=== PATIENT | female | born 1990 | race Caucasian/White ===

== ENCOUNTER 2024-04-29 11:07 | Emergency (ER) | payer OTHER, SELFPAY ==
[2024-04-29 11:22] VITALS: BP 157/98; PULSE 105; RESP 20; TEMP 36.8; O2SAT 100
--- NOTE | 2024-04-29 12:18 | ED.GENADULT ---
HPI - General Adult General Chief complaint: Skin/Abscess/Foreign Body Stated complaint: Poison yeni / sumac/ oak Source: patient Mode of arrival: ambulatory Limitations: no limitations History of Present Illness HPI narrative: Patient presents for evaluation of a pruritic rash to her face, chest, abdomen, and extremities x4. Symptoms started after being exposed to poison yeni. She was given a prescription for low-dose prednisone on 04/25/2024. She was also given a prescription for triamcinolone. Her symptoms have not improved. She denies any difficulty breathing or swallowing. She is diabetic on metformin. Related Data Home Medications Medication Instructions Recorded Confirmed Zyrtec 04/29/24 levothyroxine 04/29/24 lisinopril 04/29/24 metformin 04/29/24 pravastatin 04/29/24 prednisone 10 mg tablet mg 04/29/24 triamcinolone acetonide 0.1 % applic topical 04/29/24 topical cream venlafaxine 150 mg mg PO 04/29/24 capsule,extended release 24 hr Allergies Allergy/AdvReac Type Severity Reaction Status Date / Time vancomycin Allergy Unknown Verified 04/29/24 11:24 Review of Systems Review of Systems: CONSTITUTIONAL: Denies fever, chills, or sweats. EYES: Denies visual changes, redness, or discharge. ENT: Denies rhinorrhea, congestion, sore throat, or otalgia. CARDIOVASCULAR: Denies chest pain, palpitations, or edema. RESPIRATORY: Denies cough or dyspnea. GASTROINTESTINAL: Denies abdominal pain, nausea, vomiting, or diarrhea. GENITOURINARY: Denies dysuria or hematuria. SKIN: Reports pruritic rash and erythema to face, chest, abdomen, extremities x 4 MUSCULOSKELETAL: Denies back pain, joint pain, or myalgia. NEUROLOGIC: Denies headache, numbness, dizziness, or weakness. PSYCHIATRIC: Denies anxiety or depression. [facility] Past Medical History Medical History Diabetes Hyperlipidemia Hypertension Surgical History Surgical History History of ankle surgery Family History Family History Mother Family history non-contributory Social History Social History Smoking status: Current some day smoker Tobacco type: e-cigarettes/vaping Living arrangements: with family Gender identity (if verbalized by the patient): Female Spiritual care concerns: No Exam Narrative: GENERAL: Well-appearing, well-nourished, and in no acute distress. HEAD: Normocephalic, atraumatic. EYES: PERRLA and EOMI. ENT: Nares clear, no rhinorrhea or epistaxis. Mucous membranes moist. Oropharynx without tonsillar hypertrophy exudate or other lesions. Bilateral TMs pearly villalta nonbulging NECK: Supple. No adenopathy or masses. No carotid bruits or JVD CHEST: Clear to auscultation. No respiratory distress. No wheezes rales or rhonchi HEART: Regular rate and rhythm. No murmur heard. Normal peripheral pulses. ABDOMEN: Soft, nontender, nondistended, normal active bowel sounds. EXTREMITIES: Normal range of motion. No edema. SKIN: There is a significant body surface covered an erythematous rash in a patchy distribution. Are multiple vesicles and scabbed lesions.Body surfaces involved include face, neck, chest, abdomen and extremities x 4 NEURO: No focal deficits. Alert and oriented x3. PSYCH: Normal mood and affect. Course Course Emergency Course: This is a 33-year-old female who presented for evaluation of her pruritic rash. This is a significant reaction to poison yeni. She was advised to refrain from using topical products other than calamine lotion as other creams and lotions could make her symptoms worse. Will increase her prednisone and do a several week taper so as to decrease likelihood of recurrence often seen when treating poison yeni with steroid burst therapy. Sh
== END 2024-04-29 12:25 | disposition home or self-care (01) ==
PROVIDERS: Emergency Provider Nurse Practitioner
DX: L23.7 Allergic contact dermatitis due to plants, except food (principal); F17.290 Nicotine dependence, other tobacco product, uncomplicated; E11.9 Type 2 diabetes mellitus without complications; E78.5 Hyperlipidemia, unspecified; I10 Essential (primary) hypertension
CPT/HCPCS: 99203; G0463